=== PATIENT | female | born 1995 | race African-American/Black ===

== ENCOUNTER 2020-04-07 19:40 | Emergency (ER) | payer SELFPAY ==
[2020-04-07] MEDS ORDERED: METOCLOPRAMIDE HCL INJ/PF 10 MG/2 ML SDV IV ONE (20:37)
[2020-04-07] MEDS ORDERED: NORMAL SALINE 1000 ML 1,000 ML IV ONE (20:37)
--- NOTE | 2020-04-07 20:41 | ER Document Report ---
ED Medical Screen (RME) - General Chief Complaint: Nausea/Vomiting Stated Complaint: VOMITING (11 WKS PREG) Time Seen by Provider: 04/07/20 20:36 Notes: Patient is a G1, P0 presents emergency department with chief complaint of vomiting. Patient does have care. Patient states that she has had vomiting since week 6. States that today every time she eats that she vomits. Patient reports having epigastric discomfort and a burning sensation after vomiting. Patient reports her abdomen feels sore. Patient denies vaginal bleeding or discharge. - Related Data Allergies/Adverse Reactions: No Known Allergies Allergy (Verified 04/07/20 20:34) Home Medications: vitamins Past Medical History - Social History Chew tobacco use (# tins/day): No Frequency of alcohol use: None Drug Abuse: None Physical Exam - Vital signs Vitals: Temp Pulse Resp BP Pulse Ox 99.1 F 95 20 131/73 H 100 04/07/20 19:51 04/07/20 19:51 04/07/20 19:51 04/07/20 19:51 04/07/20 19:51 Course - Re-evaluation Re-evalutation: 04/07/20 20:40 Patient no acute distress. Will initiate basic labs, IV fluids and antiemetic. 04/07/20 20:40 I have greeted and performed a rapid initial assessment of this patient. A comprehensive ED assessment and evaluation of the patient, analysis of test results and completion of the medical decision making process will be conducted by additional ED providers. - Vital Signs Vital signs: Temp Pulse Resp BP Pulse Ox 99.1 F 95 20 131/73 H 100 04/07/20 19:51 04/07/20 19:51 04/07/20 19:51 04/07/20 19:51 04/07/20 19:51
[2020-04-07 21:20] LABS: ABSOLUTE EOSINOPHILS # (AUTO) 0.1 10^3/uL (0.0-0.6); ABSOLUTE LYMPHOCYTES (AUTO) 2.4 10^3/uL (0.5-4.7); ABSOLUTE MONOCYTES (AUTO) 0.7 10^3/uL (0.1-1.4); ABSOLUTE NEUT (AUTO) 6.2 10^3/uL (1.7-8.2); BASOPHILS % (AUTO) 0.5 % (0-2); EOSINOPHILS % (AUTO) 0.6 % (0-6); HEMATOCRIT 35.4 % (36.0-47.0); HEMOGLOBIN 12.6 g/dL (12.0-15.5); LYMPHOCYTES % (AUTO) 25.4 % (13-45); MEAN CORPUSCULAR HEMOGLOBIN 31.4 pg (27.0-33.4); MEAN CORPUSCULAR HGB CONC 35.5 g/dL (32.0-36.0); MEAN CORPUSCULAR VOLUME 89 fl (80-97); PLATELET COUNT 366 10^3/uL (150-450); RED CELL DISTRIBUTION WIDTH 13.1 % (11.5-14.0); SEGMENTED NEUTROPHILS % (AUTO) 66.5 % (42-78); TOTAL CELLS COUNTED % (AUTO) 100 %; WHITE BLOOD COUNT 9.3 10^3/uL (4.0-10.5)
[2020-04-07 21:31] LABS: ALKALINE PHOSPHATASE 63 U/L (38-126); ANION GAP 6 (5-19); ASPARTATE AMINO TRANSFERASE 24 U/L (14-36); BILIRUBIN,DIRECT 0.3 mg/dL (0.0-0.4); BILIRUBIN,TOTAL 0.4 mg/dL (0.2-1.3); BLOOD UREA NITROGEN 6 mg/dL (7-20); CALCIUM 9.5 mg/dL (8.4-10.2); CARBON DIOXIDE 25 mmol/L (22-30); CHLORIDE 103 mmol/L (98-107); GLUCOSE 81 mg/dL (75-110); POTASSIUM 4.1 mmol/L (3.6-5.0); TOTAL PROTEIN 7.4 g/dL (6.3-8.2)
[2020-04-07 22:37] LABS: APPEARANCE,URINE CLOUDY; BILIRUBIN,URINE NEGATIVE (NEGATIVE); COLOR,URINE YELLOW; GLUCOSE, URINE NEGATIVE (NEGATIVE); KETONES,URINE 20 mg/dL (NEGATIVE); LEUKOCYTE ESTERASE,URINE MODERATE (NEGATIVE); NITRITE,URINE POSITIVE (NEGATIVE); PROTEIN,URINE NEGATIVE (NEGATIVE); URINE SPECIFIC GRAVITY 1.019; UROBILINOGEN,URINE NEGATIVE mg/dL (<2.0)
--- NOTE | 2020-04-07 22:54 | ER Document Report ---
ED GI/ - General Chief Complaint: Nausea/Vomiting Stated Complaint: VOMITING (11 WKS PREG) Time Seen by Provider: 04/07/20 20:36 Notes: Patient is a G1, P0 presents emergency department with chief complaint of vomiting. Patient does have care. Patient states that she has had vomiting since week 6. States that today every time she eats that she vomits. Patient reports having epigastric discomfort and a burning sensation after vomiting. Patient reports her abdomen feels sore. Patient denies vaginal bleeding or discharge. - Related Data Allergies/Adverse Reactions: No Known Allergies Allergy (Verified 04/07/20 20:34) Home Medications: vitamins Past Medical History - General Information source: Patient - Social History Smoking Status: Never Smoker Chew tobacco use (# tins/day): No Frequency of alcohol use: None Drug Abuse: None Lives with: Family Family History: None Patient has homicidal ideation: No - Past Medical History Cardiac Medical History: Reports: None Pulmonary Medical History: Reports: None EENT Medical History: Reports: None Neurological Medical History: Reports: None Endocrine Medical History: Reports: None Renal/ Medical History: Reports: None Malignancy Medical History: Reports: None GI Medical History: Reports: None Musculoskeletal Medical History: Reports None Skin Medical History: Reports None Psychiatric Medical History: Reports: None Traumatic Medical History: Reports: None Infectious Medical History: Reports: None Surgical Hx: Negative Review of Systems - Review of Systems Constitutional: No symptoms reported EENT: No symptoms reported Cardiovascular: No symptoms reported Respiratory: No symptoms reported Gastrointestinal: See HPI Genitourinary: No symptoms reported Female Genitourinary: No symptoms reported Musculoskeletal: No symptoms reported Skin: No symptoms reported Hematologic/Lymphatic: No symptoms reported Neurological/Psychological: No symptoms reported Physical Exam - Vital signs Vitals: Temp Pulse Resp BP Pulse Ox 99.1 F 95 20 131/73 H 100 04/07/20 19:51 04/07/20 19:51 04/07/20 19:51 04/07/20 19:51 04/07/20 19:51 Interpretation: Normal - Notes Notes: GENERAL: Well-appearing, well-nourished and in no acute distress. HEAD: Atraumatic, normocephalic. EYES: Pupils equal round and reactive to light, extraocular movements intact, sclera anicteric, conjunctiva are normal. ENT: TMs normal, nares patent, oropharynx clear without exudates. Moist mucous membranes. NECK: Normal range of motion, supple without lymphadenopathy or JVD. LUNGS: Breath sounds clear to auscultation bilaterally and equal. No wheezes rales or rhonchi. HEART: Regular rate and rhythm without murmurs, rubs or gallops. ABDOMEN: Soft, slight epigastric tenderness, normoactive bowel sounds. No guarding, no rebound. No masses appreciated. BACK: No cervical, thoracic, lumbar midline tenderness. No saddle anesthesia, normal distal neurovascular exam. GENITOURINARY: Deferred. EXTREMITIES: Normal range of motion, no pitting or edema. No clubbing or cyanosis. NEUROLOGICAL: Cranial nerves II through XII grossly intact. Normal speech, normal gait. PSYCH: Normal mood, normal affect. SKIN: Warm, Dry, normal turgor, no rashes or lesions noted. Course - Re-evaluation Re-evalutation: 04/07/20 22:50 After receiving IV fluid as well as some Reglan patient has a been able to tolerate ice chips without vomiting. There is been no episodes of vomiting here in the emergency department. Patient does not have any abdominal pain, vaginal bleeding or discharge. Patient did have a slightly contaminated urine specimen but this was positive for nitrites. I will prescribe her Keflex for her urinary tract infection and send off a urine culture as well. Patient is agreement with this. - Vital Signs Vital signs: Temp Pulse Resp BP Pulse Ox 98.0 F 80 16 117/69 100 04/07/20 23:05 04/07/20 23:05 04/07/20 23:05 04/07/20 23:05 04/07/20 23:05 - Laboratory Result Diagrams: 04/07/20 20:50 04/07/20 20:50 Laboratory results interpreted by me: 04/07/20 04/07/20 04/07/20 20:50 20:50 22:14 Hct 35.4 L Sodium 134.3 L BUN 6 L Creatinine 0.48 L Urine Ketones 20 H Urine Blood SMALL H Urine Nitrite POSITIVE H Ur Leukocyte Esterase MODERATE H 04/07/20 23:55 Blood work does not show leukocytosis or significant anemia P. Patient does have a moderate amount of leuks and positive nitrites although there is a large amount of squamous epithelial cells. No electrolyte derangement noted. Laboratory 0904/07/20 04/07/20 20:50 20:50 22:14 WBC 9.3 RBC 4.00 Hgb 12.6 Hct 35.4 L MCV 89 MCH 31.4 MCHC 35.5 RDW 13.1 Plt Count 366 Lymph % (Auto) 25.4 [place] % (Auto) 7.0 Eos % (Auto) 0.6 Baso % (Auto) 0.5 Absolute Neuts (auto) 6.2 Absolute Lymphs (auto) 2.4 Absolute Monos (auto) 0.7 Absolute Eos (auto) 0.1 Absolute Basos (auto) 0.0 Seg Neutrophils % 66.5 Sodium 134.3 L Potassium 4.1 Chloride 103 Carbon Dioxide 25 Anion Gap 6 BUN 6 L Creatinine 0.48 L Est GFR ( Amer) > 60 Est GFR (MDRD) Non-Af > 60 Glucose 81 Calcium 9.5 Total Bilirubin 0.4 Direct Bilirubin 0.3 Neonat Total Bilirubin Not Reportable Neonat Direct Bilirubin Not Reportable Neonat Indirect Bili Not Reportable AST 24 ALT 8 Alkaline Phosphatase 63 Total Protein 7.4 Albumin 4.0 Urine Color YELLOW Urine Appearance CLOUDY Urine pH 6.0 Ur Specific [place] 1.019 Urine Protein NEGATIVE Urine Glucose (UA) NEGATIVE Urine Ketones 20 H Urine Blood SMALL H Urine Nitrite POSITIVE H Urine Bilirubin NEGATIVE Urine Urobilinogen NEGATIVE Ur Leukocyte Esterase MODERATE H Urine WBC (Auto) 50 Urine RBC (Auto) 6 Urine Bacteria (Auto) 3+ Squamous Epi Cells Auto 20 Urine Mucus (Auto) MANY Urine Ascorbic Acid NEGATIVE Discharge - Discharge Clinical Impression: Vomiting during Condition: Stable Disposition: HOME, SELF-CARE Instructions: Intravenous (IV) Fluids ([facility]), Reglan ([facility]) Additional Instructions: *Today are seen in the emergency department for vomiting. Report was unremarkable. Urine did show an infection which we will treat with antibiotics. Please push fluids. Start with clear liquids. Please follow-up with [facility] as previously scheduled. If you develop any vaginal bleeding, abdominal pain severe lightheadedness or weakness please return emergency department. Hyperemesis Gravidarum Hyperemesis gravidarum is the medical term for severe vomiting during . We don't know exactly why it occurs, but it's a common problem. Dehydration can occur. This reduces blood flow to the placenta, decreasing the baby's nourishment. The baby will also become dehydrated. There can be harmful changes in blood sodium, potassium, or acid balance. Our goal is to correct, and prevent, dehydration. For severe cases, we give IV fluids. Antinausea medication will be prescribed. (Don't be concerned about " defects" -- the risk to you and your baby from the hyperemesis is the biggest problem. The antinausea medication is very safe at this stage of .) Call the doctor if you have vaginal bleeding, abdominal pain, severe lightheadedness or weakness, or other alarming symptoms. Prescriptions: Cephalexin Monohydrate [Keflex 500 mg Capsule] 500 mg PO BID 5 Days #10 capsule
[2020-04-07 23:06] VITALS: BP 117/69
== END 2020-04-07 23:05 | disposition home or self-care (01) ==
LOC: ER 19:40
DX: O21.9 Vomiting of pregnancy, unspecified (principal); O26.891 Other specified pregnancy related conditions, first trimester; R10.816 Epigastric abdominal tenderness; Z79.899 Other long term (current) drug therapy; Z3A.11 11 weeks gestation of pregnancy
CPT/HCPCS: 99284; 96361; 96374; 36415; 87086; 85025; 87088; 80053; 81001; 87186; J2765; J7030